=== PATIENT | male | born 1955 | race Caucasian/White ===

== ENCOUNTER 2019-01-11 06:55 | Outpatient (CLI) | payer OTHER ==
[~2019-01-11] VITALS: Ht 180.3 cm; Wt 64.6 kg
[2019-01-11] VITALS (12 sets, daily range): BP systolic 104–127; BP diastolic 60–80; PULSE 105–118
[2019-01-11] MEDS ORDERED: LOVENOX 6060 MG/0.6 SQ (07:19)
[2019-01-11] MEDS ORDERED: DILAUDID 2MG TAB2 MG PO (07:20)
[2019-01-11] MEDS ORDERED: ANTIVERT 25MG25 MG PO (07:21)
[2019-01-11] MEDS ORDERED: ZOFRAN8 MG PO (07:21)
[2019-01-11] MEDS ORDERED: PROAIR HFA0.09 MG/AC IH (07:22)
--- NOTE | 2019-01-11 08:35 | NUR ---
pt to ct per ambulation. Pt positioned in prone position on ct table. Monitors applied.
--- NOTE | 2019-01-11 09:00 | NUR ---
Specimens obtained by Dr Bustamante and placed in formalin and RPMI. Specimens labeled.
--- NOTE | 2019-01-11 11:24 | NUR ---
awaiting ride home. Pt denies complaints at this time.
--- NOTE | 2019-01-11 11:40 | NUR ---
Pt out to car per wheelchair. Jennifer white called and talked to and then nurse talks to Jennifer. Informed of decreased O2 sats. Pt checked prior to taking pt to car. O2 sat 86% on room air. Pt states pain in epigastric region starting and pts states they will give him his pain med on arrival to car. Pt up and into car without assistance.
== END 2019-01-11 14:00 | disposition home or self-care (01) ==
LOC: COL.RAD 06:55
DX: R91.8 Other nonspecific abnormal finding of lung field (principal); R59.0 Localized enlarged lymph nodes; R93.89 Abnormal findings on diagnostic imaging of other specified body structures

== ENCOUNTER 2019-01-12 10:11 | Inpatient (IN) | payer OTHER ==
[2019-01-12] VITALS (56 sets, daily range): BP systolic 130–137; BP diastolic 70–77; PULSE 104–110; TEMP 97.7–98.8; O2SAT 88–96
[~2019-01-12] VITALS: Ht 182.9 cm; Wt 67.9 kg
[~2019-01-12 10:11] MED LIST: ANTIVERT 25MG25 MG PO; DILAUDID 2MG TAB2 MG PO; LOVENOX 6060 MG/0.6 SQ; PROAIR HFA0.09 MG/AC IH; ZOFRAN8 MG PO
[2019-01-12 10:27] LABS: BASO % 0.2 % (0.0-2.0); EOS % 0.1 % (0-4.0); GRAN # 9.8 (1.4-6.5); GRAN % 83.2 % (42.2-75.2); HEMATOCRIT 45.8 % (42.0-52.0); HEMOGLOBIN 15.1 g/dl (13.5-18.0); LYMPH # 0.8 (1.2-3.4); MEAN CELL VOLUME 93 fl (80.0-100.0); MEAN CORPUSCULAR HEMOGLOBIN 31 pg (27.0-31.0); MEAN CORPUSCULAR HGB CONC 33 g/dl (33.0-37.0); MEAN PLATELET VOLUME 9.6 fl (7.4-10.4); MONO # 1.1 (0.1-0.6); MONO % 9.2 % (1.7-9.3); PLATELET COUNT 311 K/mm3 (130-400); RED BLOOD COUNT 4.94 M/mm3 (4.20-5.60); REDCELL DISTRIBUTION WIDTH-CV 13.5 % (11.5-14.5)
[2019-01-12 10:32] LABS: PROTHROMBIN TIME 12.1 SECONDS (9.7-12.8)
[2019-01-12 10:40] LABS: ALANINE AMINOTRANSFERASE < 6 U/L (21-72); ALBUMIN 3.4 gm/dL (3.5-5.0); ALKALINE PHOSPHATASE 116 U/L (50-136); ANION GAP 9 mmol/L (7-16); AST,SGOT 20 U/L (15-37); BILIRUBIN,TOTAL 0.5 mg/dL (0.0-1.0); BLOOD UREA NITROGEN 11 mg/dL (9-20); C-REACTIVE PROTEIN 7.6 mg/dL (0.0-0.9); CALCIUM 9.3 mg/dL (8.4-10.2); CARBON DIOXIDE 28 mmol/L (22-30); CHLORIDE 98 mmol/L (98-107); GLUCOSE 130 mg/dL (74-106); POTASSIUM 4.2 mmol/L (3.4-5.0); SODIUM 135 mmol/L (137-145); TOTAL PROTEIN 6.9 gm/dL (6.4-8.2)
[2019-01-12 15:01] LABS: CHOLESTEROL RISK RATIO 7.2
[2019-01-12 16:08] LABS: COLLECTION METHOD CATHETER
[2019-01-12 16:22] LABS: MUCOUS Present /lpf; PH 6 (5-8); SQUAMOUS EPITHELIAL None Seen /hpf; URINE APPEARANCE Clear; URINE BACTERIA None Seen /hpf; URINE BILIRUBIN Negative (NEGATIVE); URINE BLOOD 2+ (NEGATIVE); URINE COLOR Yellow; URINE GLUCOSE Negative (NEGATIVE); URINE KETONE 1+ (NEGATIVE); URINE LEUKOCYTE ESTERASE Negative (NEGATIVE); URINE NITRATE Negative (NEGATIVE); URINE PROTEIN(semi-quant) Negative (NEGATIVE); URINE RBC >50 /hpf; URINE UROBILINOGEN Negative (NEGATIVE)
[2019-01-12 16:58] LABS: ARTERIAL BLD GAS O2 SATURATION 95.2 % (92-100); ARTERIAL BLD GAS TCO2 CT 26.5; ARTERIAL BLOOD GAS HCO3 25.3 meq/L (22-26); ARTERIAL BLOOD GAS PCO2 39.5 mmHg (35-45); ARTERIAL BLOOD GAS PO2 75.2 mmHg (80-100); ARTERIAL BLOOD GAS pH 7.43 (7.35-7.45)
--- NOTE | 2019-01-12 20:06 | NUR ---
Bedside shift report given to GENESIS Gilliam. Patient has had no acute changes from previous assessment, vital signs stable. Call light within reach of unaffected side. Bed in lowest position. Side rails up x3. to waiting room at this time.
--- NOTE | 2019-01-12 20:15 | NUR ---
Met with patient , discussed plan of care. agreeable to plan, all questions and concerns addressed. *2325: Patient had further questions, continued to check on well being of patient. Stated I would inform if anything changed. Discussed plan for today including code status and wishes for care on advancement.
[2019-01-13] VITALS (834 sets, daily range): BP systolic 111–135; BP diastolic 63–78; PULSE 102–113; TEMP 97.6–98.7; O2SAT 88–98
[2019-01-13 05:23] LABS: HEMATOCRIT 41.5 % (42.0-52.0); HEMOGLOBIN 13.6 g/dl (13.5-18.0); MEAN CELL VOLUME 93 fl (80.0-100.0); MEAN CORPUSCULAR HEMOGLOBIN 30 pg (27.0-31.0); MEAN CORPUSCULAR HGB CONC 33 g/dl (33.0-37.0); MEAN PLATELET VOLUME 9.7 fl (7.4-10.4); PLATELET COUNT 295 K/mm3 (130-400); RED BLOOD COUNT 4.48 M/mm3 (4.20-5.60); REDCELL DISTRIBUTION WIDTH-CV 13.5 % (11.5-14.5)
[2019-01-13 05:29] LABS: CALCIUM 8.9 mg/dL (8.4-10.2); CREATININE, serum 0.54 (0.66-1.25)
[2019-01-13 05:37] LABS: HYPOCHROMIA 1+; LYMPHOCYTE 9 % (20.0-51.0); NEUTROPHILS 82 % (42.0-75.2); PLATELET ESTIMATE NORMAL (NORMAL)
--- NOTE | 2019-01-13 07:19 | NUR ---
Vancomycin Initial Dosing Pharmacy Note Ordering provider: Alexa Wihtney MD Indication/duration: Community acquired pneumonia, 7 days Relevant comorbidities: PNA since September s/p treatment with Azithromycin, Augmentin, and Levaquin LABS: WBC 10.8, SCr 0.54, CrCl>100, GFR 155 Recommendation: Vancomycin 1 gm IV q8h. Pharmacy will continue to monitor and obtain a Vancomycin trough on 01/14/19. Loading dose: 1.5 grams Maintenance dose: 1 gram every 8 hours Trough goal: 15-20 ug/mL
--- NOTE | 2019-01-13 07:57 | NUR ---
Shift assessment complete at this time. Plan of care reviewed at bedside with patient et spouse. Additional time taken to address any other needs or concerns with patient and family. Vitals stable at this time. Pt does not display signs of pain, additionally, is unable to describe pain r/t severe aphasia. Pt appears to be resting calmly and comfortably in bed. Pt respositioned at this time as well. Pt with noted absent hand grasp, limited movement of LUE, LLE, et RLE. Pt unable to move RUE. Unable to assess orientation or sensation r/t aphasia. Bed in low position, call light in reach of LUE, will continue to monitor.
--- NOTE | 2019-01-13 12:00 | NUR ---
Plan: Plan is to return home with homehealth support, possible SNF, and support. Assess: Sw's met with patient and in room about a safe DC plan. Patient is unable to verbalize but there is not a DPOA on file for the patient. Vanessa Prather states that they have one with Dr. Maki and Dr. Cifuentes's office. SW request DPOA for [employer] to be faxed over. SW witnessed patient shake his head yes with some delay as to the 's ability to make decision. Patient is reported to have been able to amb and drive prior. Was reported to be verbal prior. Patient uses 02 at home 3 liters. SECOND [employer] is Maria Elena Castillo. Patient obtain medications on at [facility]. Patient reports having contact with Argelia Sosa, Dr. Cifuentes, and Patrica Longoria. inquired about DPOA of Financial and sw advised that she would have to seek a fuel efficient automobile designer externally for that process and that we are unable to faciliate that type of POA. Patient's will drive him home upon DC. May need placement Action: Follow-up required.
--- NOTE | 2019-01-13 15:40 | NUR ---
PT ADMITTED TO FLOOR AT THIS TIME. ASSISTED TO GET PT COMFORTABLE AND SWITCHED IV SALINE TO D5NS. ABX STARTED. GAVE PT SOME PAPERS TO ASSIST HIM WITH COMMUNICATION, THAT HE COULD POINT TO WHAT HE WANTS. AT BEDSIDE.
--- NOTE | 2019-01-13 20:00 | NUR ---
Telemetry has called because patient high heart rate alarm keeps going off. Pts HR is in the 120s but HR will fall back down into the 110s, where he has be running today. Currently HR is 114. Pt is resting in the bed upon assessment. He appears agitated and is waving his L wrist. communicates that his LW IV site is bothering him. LW IV discontinued. IV fluids infusing to RW IV. Respirations are even and unlabored. Breathing does become labored when he coughs. Lungs are coarse. RLL diminished. RUL exp wheezes. Pt is 92% on O2@2L via NC. Pt indicates that he is not in pain by nodding. He will not follow commands. R side is flaccid. R facial droop noted. Pupils equal 2+ bilaterally. Richards catheter to dependent drainage- clear yellow urine noted. Abdomen soft, nontender. BS+. Will continue to monitor.
--- NOTE | 2019-01-13 22:05 | NUR ---
Telemetry called again that patient HR is elevated. Linda JETT called with update. Linda stated she would call back with orders.
--- NOTE | 2019-01-13 22:30 | NUR ---
Linda JETT at bedside to assess patient. Orders received for labs, EKG and ABG check. Plans to transfer pt to ICU for closer observation.
[2019-01-13 22:59] LABS: BASO % 0.3 % (0.0-2.0); EOS % 0.3 % (0-4.0); GRAN # 7.7 (1.4-6.5); GRAN % 77.9 % (42.2-75.2); HEMATOCRIT 38.2 % (42.0-52.0); HEMOGLOBIN 12.6 g/dl (13.5-18.0); LYMPH # 0.9 (1.2-3.4); LYMPH % 8.6 % (20.0-51.0); MEAN CELL VOLUME 92 fl (80.0-100.0); MEAN CORPUSCULAR HEMOGLOBIN 30 pg (27.0-31.0); MEAN CORPUSCULAR HGB CONC 33 g/dl (33.0-37.0); MEAN PLATELET VOLUME 9.4 fl (7.4-10.4); MONO # 1.2 (0.1-0.6); MONO % 12.6 % (1.7-9.3); PLATELET COUNT 275 K/mm3 (130-400); RED BLOOD COUNT 4.14 M/mm3 (4.20-5.60); REDCELL DISTRIBUTION WIDTH-CV 13.5 % (11.5-14.5)
[2019-01-13 23:13] LABS: CALCIUM 8.3 mg/dL (8.4-10.2); CREATININE, serum 0.55 (0.66-1.25); MAGNESIUM 1.6 mg/dL (1.6-2.3); POTASSIUM 3.6 mmol/L (3.4-5.0)
[2019-01-13 23:53] LABS: ARTERIAL BLD GAS O2 SATURATION 94.3 % (92-100); ARTERIAL BLD GAS TCO2 CT 25.3; ARTERIAL BLOOD GAS BASE EXCESS -0.3 (-2-2); ARTERIAL BLOOD GAS HCO3 24.1 meq/L (22-26); ARTERIAL BLOOD GAS PCO2 38.5 mmHg (35-45); ARTERIAL BLOOD GAS pH 7.41 (7.35-7.45)
[2019-01-14] VITALS (194 sets, daily range): BP systolic 104–122; BP diastolic 51–78; PULSE 58–106; TEMP 97.4–98; O2SAT 93–100
--- NOTE | 2019-01-14 | NUR ---
Report called to Judah HURTADO. Will transfer patient to ICU once K+ and Mg replace is running and second IV is intiated.
--- NOTE | 2019-01-14 01:00 | NUR ---
Pt transferred to ICU. K+ and Mg replacement infusing to new R AC IV site and IVF and Vancomycin infusing to RW IV site.
--- NOTE | 2019-01-14 05:09 | NUR ---
PT CURRENTLY RESTING IN BED, APPEARS COMFORTABLE. VSS AT THIS TIME, HR-97 WITH RUNS OF SVT UP TO 160 NOTED. PT NOTED TO BE UNABLT TO COUGH UP SPUTUM, SUCTION SET UP AT BEDSIDE. PT NOT F/C NOTED FROM TIME OF TX FROM MEDICAL. TREV REMAINS IN PLACE. MAG AND K REPLACED. WILL CONTINUE TO MONITOR PT STATUS AND UPDATE PROVIDERS NEEDED.
[2019-01-14 06:03] LABS: CALCIUM 8.4 mg/dL (8.4-10.2); CREATININE, serum 0.55 (0.66-1.25); POTASSIUM 4.2 mmol/L (3.4-5.0)
[2019-01-14 06:14] LABS: MAGNESIUM 2.2 mg/dL (1.6-2.3)
--- NOTE | 2019-01-14 07:15 | NUR ---
Bedside shift report received from GENESIS Chandra. Patient is awake and alert, but is aphasic. Best motor response, patient is able to follow some commands but not others. For example, patient will shake head up and down indicating yes but will not shake head left and right indicating no. It is difficult to know if he is having difficulty receiving and understanding the information or if his response is purposeful. Full assessment completed, including NIHSS. Refer to documentation for assessment and scores. Patient's at the bedside. Call light within reach. Bed in lowest position. Side rails up x3.
--- NOTE | 2019-01-14 13:17 | NUR ---
RUBY attended clinical rounds. Patient continues to be nonverbal and is unable to follow commands. Dr Todd spoke with patient's , Elida, and they are going to pursue transferring patient to [facility]. RUBY followed up with patient's after rounds. Patient's only family is Elida and his sister's that live out of state. Elida reports that patient does not have contact with his children. After contacting Dr. Cifuentes's office and [facility] (PCP office), RUBY discovered that patient does not have a DPOA-HC. Patient has only signed release of information forms for Elida at these offices. Patient's , Elida, is next of kin.
--- NOTE | 2019-01-14 18:28 | NUR ---
Nurse to nurse report given to Earl Aj RN at [facility] at this time.
--- NOTE | 2019-01-14 19:32 | NUR ---
[facility] to bedside. Patient transferred from ICU bed to EMS stretcher with no complications. at bedside during transfer. Patient is in no apparent distress. Vital signs stable just prior to tranfser.
== END 2019-01-14 19:32 | disposition short-term general hospital (02) | DRG 64 ==
LOC: COL.ER 10:11 → ICU 12:56 → MEDICAL 01-13 15:50 → ICU 01-14 00:55 → MEDICAL 01-14 00:55 → ICU 01-14 00:55
PROVIDERS: Family Medicine; Internal Medicine Pulmonary Disease; Nurse Practitioner Family; ADMIT Internal Medicine
PROC: 02HV33Z Insertion of Infusion Device into Superior Vena Cava, Percutaneous Approach (ICD-10-PCS; principal; 2019-01-14)
DX: I63.9 Cerebral infarction, unspecified (principal); J18.9 Pneumonia, unspecified organism; E43 Unspecified severe protein-calorie malnutrition; G81.91 Hemiplegia, unspecified affecting right dominant side; Z68.1 Body mass index [BMI] 19.9 or less, adult; R47.01 Aphasia; R29.810 Facial weakness; R29.713 NIHSS score 13; R09.02 Hypoxemia; Z79.01 Long term (current) use of anticoagulants; Z87.891 Personal history of nicotine dependence; Z86.711 Personal history of pulmonary embolism; Z86.718 Personal history of other venous thrombosis and embolism; Z88.6 Allergy status to analgesic agent
CPT/HCPCS: 99223-AI; A9585; C1751; C1892; J0456; J0696; J1170; J1650; J2543; J3370; J3475; J3480; J7030; J7042; J7050; Q9967